=== PATIENT | male | born 1985 | race Caucasian/White ===

== ENCOUNTER 2020-12-04 01:11 | Emergency (ER) | payer MEDICAID ==
[~2020-12-04] VITALS: Ht 185.4 cm; Wt 106.1 kg
[2020-12-04 01:20] VITALS: BP 157/107; Ht 185.4 cm; Wt 106.1 kg
[2020-12-04 03:28] LABS: PLATELET COUNT 204 x10^3mcL (152-348); RED CELL DISTRIBUTION WIDTH 13.8 % (12.1-16.2)
[2020-12-04 03:29] LABS: BASOPHIL % 2.3 % (0.2-1.5)
[2020-12-04 03:30] LABS: rbc morphology (normal/abnorm) NORMAL (NORMAL)
[2020-12-04 03:46] LABS: CALCIUM 9.2 mg/dL (8.5-10.1); CARBON DIOXIDE 25.5 mmol/L (21-32); CHLORIDE SERUM 101 mmol/L (98-107); CREATININE SERUM 0.8 mg/dL (0.7-1.3); GFR1 > 60 mL/min; GLUCOSE SERUM 102 mg/dL (74-106); POTASSIUM SERUM 3.9 mmol/L (3.5-5.1); SODIUM SERUM 136 mmol/L (136-145)
[2020-12-04 03:51] LABS: ALKALINE PHOSPHATASE 70 U/L (46-116); ALT/SGPT 35 U/L (16-63); AST/SGOT 22 U/L (15-37); BILIRUBIN TOTAL 0.71 mg/dL (0.20-1.00); LIPASE 116 IU/L (73-393); TOTAL PROTEIN, SERUM 7.7 g/dL (6.4-8.2)
== END 2020-12-04 04:39 | disposition home or self-care (01) ==
LOC: ED 01:11
PROVIDERS: Emergency Medicine
DX: R07.89 Other chest pain (principal); F14.90 Cocaine use, unspecified, uncomplicated